=== PATIENT | female | born 2000 | race Caucasian/White ===

== ENCOUNTER → 2019-04-29 | Outpatient (CLI) | payer OTHER, SELFPAY ==
[2019-04-29 18:58] LABS: Chlamydia Trachomatis by PCR Negative (Negative); Neisserai gonorrhoeae by PCR Negative (Negative); Probe Check PASS; Sample Adequacy Control PASS; Specimen Processing Control PASS
== END | disposition home or self-care (01) ==
LOC: LABSPEC 13:39
PROVIDERS: Visit Provider Obstetrics & Gynecology
DX: Z11.3 Encounter for screening for infections with a predominantly sexual mode of transmission (principal)
CPT/HCPCS: 87491; 87591

== ENCOUNTER → 2020-05-09 | Outpatient (CLI) | payer OTHER, SELFPAY ==
[2020-05-09 10:38] VITALS: BMI 17.9
[2020-05-13 16:02] LABS: HPV Reflexed? NOT INDICATED
== END | disposition home or self-care (01) ==
LOC: LABSPEC 16:41
PROVIDERS: PCP Pediatrics; Referring Provider Obstetrics & Gynecology; Visit Provider Obstetrics & Gynecology
DX: Z12.4 Encounter for screening for malignant neoplasm of cervix (principal)
CPT/HCPCS: 88175; G0145

== ENCOUNTER 2020-09-02 14:49 | Emergency (ER) | payer OTHER, SELFPAY ==
[2020-05-09 10:38] VITALS: BMI 17.9
[2020-09-02 14:50] VITALS: BP 134/91; PULSE 96; RESP 18; TEMP 36.6; O2SAT 99; BMI 17.9
--- NOTE | 2020-09-02 15:01 | RAD_ITS ---
EXAM DESCRIPTION: PORTABLE AP CHEST CLINICAL HISTORY: 20 years Female, PT WITH COUGH, CP AND SOB. STATES PAIN INCREASES WITH A DEEP BREATH. ONGOING FOR PAST 5 DAYS. PT WITH COUGH, CP AND SOB. STATES PAIN INCREASES WITH A DEEP BREATH. ONGOING FOR PAST 5 DAYS. COMPARISON: None FINDINGS: The thorax is intact. The heart and mediastinum appear to be within normal limits. The lungs appear to be well areated without evidence of pneumonic consolidation or pleural effusion. RAD/Chest 1 View (Portable) IMPRESSION: Normal portable chest. Electronically Signed: Feliz Carvalho, at 16:05 EST Tel , Service support ,
--- NOTE | 2020-09-02 15:01 | EKG12_ITS ---
Test Reason : Blood Pressure : / mmHG Vent. Rate : 082 BPM Atrial Rate : 082 BPM P-R Int : 150 ms QRS Dur : 084 ms QT Int : 332 ms P-R-T Axes : 079 107 068 degrees QTc Int : 387 ms Normal sinus rhythm Rightward axis Borderline ECG Confirmed by OCTAVIA POWELL, ELLI ([id number]), publication editor LOW KENNEDY ([id number]) on 09/06/2020 9:08:11 AM Referred By: ALICE Confirmed By:ELLI DUDLEY MD
--- NOTE | 2020-09-02 15:13 | ED.DCSUM_ITS ---
History of Present Illness Informant: Patient Onset: Days Narrative: 20-year old female with no significant past medical history presents with complaints of chest pain and dyspnea on exertion x5 days. She has midsternal chest pressure/aching that comes and goes intermittently. It last several hours. It is worse with walking or running. With the pain she also has shortness of breath. She states she usually runs but has been unable to due to dyspnea. No radiation into arm, neck, or jaw. No nausea, vomiting, or diaphoresis. Denies fevers, chills, loss of taste or smell, cough, hemoptysis, abdominal pain, or diarrhea. Her only PE risk factor is estrogen control. She has no history of DVT/PE, recent surgery or travel, or leg pain or swelling. Maternal grandmother had DVT. No recent sick contacts. <Paradise Krishna - Last Filed: 09/02/20 15:41> <Ray Cuellar - Last Filed: 09/02/20 15:51> Chief Complaint: Chest Pain Past Medical History Past Medical History: - - GERD Smoking Status: Never smoker <Paradise Krishna - Last Filed: 09/02/20 15:41> <Ray Cuellar - Last Filed: 09/02/20 15:51> - Allergies and Home Meds Allergies/Adverse Reactions: Allergies No Known Allergies Allergy (Verified 09/02/20 14:53) Primary Care Physician: Feliz Fernandes MD [Primary Care Provider] - Review of Systems General: Denies: Chills, Fever, Sweats Eyes: Denies: Visual changes - bilaterally, Diplopia ENT: Denies: Rhinorrhea, Sore throat Cardiovascular: Reports: Chest pain. Denies: Palpitations Respiratory: Reports: Dyspnea on exertion. Denies: Dyspnea, Cough, Orthopnea Gastrointestinal: Denies: Abdominal pain, Nausea, Vomiting, Diarrhea, Melena, Hematochezia Genitourinary: Denies: Dysuria, Hematuria, Frequency Musculoskeletal: Denies: Back pain, Extremity Pain Skin: Denies: Rash, Wounds Neurological: Denies: Headache, Weakness, Numbness <Paradise Krishna - Last Filed: 09/02/20 15:41> Physical Exam Vital Signs/Narrative: Vital Signs Temp Pulse Resp BP Pulse Ox 09/02/20 14:50 97.9 F 96 18 134/91 H 99 General: Well nourished, Well developed, No Acute Distress Head: Normocephalic, Atraumatic Eyes: Perrl, EOMI ENT: Moist mucous membranes, No rhinorrhea Neck: Supple, Nontender Cardiovascular: Regular rate, Regular rhythm, No murmurs Respiratory: No distress, CTA bilaterally, Chest nontender Abdomen: Soft, Nontender, Nondistended, Normal bowel sounds Back: Nontender, Normal Inspection Extremities: Nontender, No edema Skin: Normal color, No rash Neurological: Alert, Oriented x3, Cranial nerves II-XII grossly intact, Normal Strength, Normal Sensation Psychological: Normal affect, Normal Mood <Paradise Krishna - Last Filed: 09/02/20 15:41> Vital Signs/Narrative: Vital Signs Temp Pulse Resp BP Pulse Ox 09/02/20 14:50 97.9 F 96 18 134/91 H 99 <Ray Cuellar - Last Filed: 09/02/20 15:51> Diagnostic/Tx/Re-eval Laboratory Data 09/02/20 09/02/20 09/02/20 15:10 15:10 15:10 WBC 5.9 RBC 4.94 Hgb 14.8 Hct 44.0 MCV 89.1 MCH 30.0 MCHC 33.6 RDW Std Deviation 35.3 RDW Coeff of Richardson 10.9 L Plt Count 214 MPV 9.7 Immature Gran % (Auto) 0.200 Neut % (Auto) 57.8 Lymph % (Auto) 31.9 Adams % (Auto) 8.2 Eos % (Auto) 0.9 Baso % (Auto) 1.0 Absolute Neuts (auto) 3.4 Absolute Lymphs (auto) 1.87 Nucleated RBC % 0 D-Dimer Quant (PE/DVT) 0.28 Sodium 139 Potassium 4.1 Chloride 109 H Carbon Dioxide 25.0 Anion Gap 5 BUN 12 Creatinine 0.70 Estim Creat Clear Calc 86.48 Est GFR (MDRD) Af Amer 136 Est GFR (MDRD) Non-Af 112 BUN/Creatinine Ratio 17.2 Glucose 96 Calcium 9.7 Troponin I < 0.015 - Rhythm Strip Rhythm Strip: Sinus Rhythm Rate: 82 Ectopy: None - Medical Decision Making Patient presented with midsternal chest pain and dyspnea on exertion x5 days. She appears well nontoxic. Vital signs are within normal limits. Heart was regular rate and rhythm. Lungs clear to auscultation. Does have some reproducible tenderness to palpation over the costochondral margins. Abdomen is soft and nontender. Basic labs are normal. Troponin and D-dimer negative. EKG shows normal sinus rhythm at rate of [address] or T wave changes. Chest x- ray interpreted by ED attending shows normal heart size and no acute infiltrate or process. Patient was advised she likely has chest wall pain and was given a prescription for naproxen. Follow-up with your PCP if not improving in 5 days. Discussed return precautions. She was agreeable and discharged home in stable condition. <Paradise Krishna - Last Filed: 09/02/20 15:41> - Medical Decision Making I supervised the PA and have performed my own pertinent history and physical. Results and treatment plan were discussed. HPI: Patient reports that she has chest pain that began 5 days ago. It is a constant pain. It is worsened by walking around. She is on control. She reports that her grandmother had a DVT. She denies any ankle swelling or calf pain. No recent travel. She denies any trauma. No fall, MVA, or change in activity. PE: Vitals: Stable. Afebrile. General: Well-nourished and well-developed. Head: Normocephalic atraumatic. Neck: Supple, no lymphadenopathy. No JVD. Nontender. Cardiovascular: Regular rate and rhythm. No murmurs. Respiratory: No respiratory distress. Clear to auscultation bilaterally. Mild tenderness to palpation of the costochondral margin bilaterally that does reproduce her pain. Abdominal: Soft, nontender, nondistended, normal bowel sounds. No guarding, rebound, or peritoneal signs. Back: Nontender. Extremities: Nontender, no edema. Skin: Normal color, no rash. Neurologic: Alert and oriented ?3. Cranial nerves II through XII are intact. Normal strength and sensation. Psych: Normal affect. Emergency Department course: Patient is resting comfortably. Labs and x-ray are unremarkable. Treatment Plan: Patient will be discharged with symptomatic care. Follow-up with her primary care physician without improvement. Return to the emergency department for any worsening symptoms. This note was generated with [employer] software. It may contain incorrect words, spelling, and punctuation that were not noted in review of the chart prior to signing. <Ray Cuellar - Last Filed: 09/02/20 15:51> ED Disposition <Paradise Krishna - Last Filed: 09/02/20 15:41> <Ray Cuellar - Last Filed: 09/02/20 15:51> - Plan for ED Patient: Disposition: Home or Assisted Living Diagnosis: Chest wall pain Instructions: ED Chest Pain NonCardiac Prescriptions: Naproxen [Naprosyn] 500 mg PO BID PRN #20 tab Transmission Status: Received by [id number] Referrals: Feliz Fernandes MD [Primary Care Provider] -
[2020-09-02 15:19] LABS: Absolute Lymphocyte Count 1.87 X10^3/uL (0.83-4.51); Absolute Neutrophil Count 3.4 X10^3/uL (2.0-7.7); Basophil# 0.06 X10^3/uL; Eosinophil# 0.05 X10^3/uL; Eosinophils% 0.9 % (0-5); Hemoglobin 14.8 g/dL (12.0-15.0); Lymphocyte # 1.87 X10^3/ul (4.0); Lymphocyte % 31.9 % (19-41); Mean Corp Hgb Conc 33.6 g/dL (32-36); Mean Corpuscular Volume 89.1 fL (81-99); Mean Platelet Vol. 9.7 fl (6.2-12.0); Monocyte# 0.48 X10^3/uL; Monocyte% 8.2 % (0-10); NRBC Flagged by Analyzer 0 % (0-5); Neutrophil # 3.39 X10^3/uL (2.7-7.7); Neutrophil % 57.8 % (47-70); Platelet Count 214 K/mm3 (150-450); RBC Distribution Width CV 10.9 % (11.6-14.6); RBC Distribution Width SD 35.3 fl (35.1-43.9); Red Blood Count 4.94 M/mm3 (4.2-5.4); White Blood Count 5.9 K/mm3 (4.4-11.0)
[2020-09-02 15:32] LABS: D-Dimer Quantitative (DVT/PE) 0.28 FEU/ug/m (0.27-0.49)
[2020-09-02 15:36] LABS: Anion Gap 5 (5-15); BUN 12 mg/dL (7-18); BUN/Creat Ratio 17.2 RATIO (10-20); Calcium,Total 9.7 mg/dL (8.5-10.1); Chloride 109 mmol/L (98-107); EST Glomerular Filtration Rate 112 mL/min (>60); Est Glom Filt Rate - Afr Amer 136 mL/min (>60); Estimated Creatinine Clearance 86.48 ml/min; Glucose 96 mg/dL (74-106); Potassium 4.1 mmol/L (3.5-5.1); Sodium Level 139 mmol/L (136-145)
[2020-09-02 15:52] VITALS: BP 117/81; PULSE 84; RESP 14; O2SAT 97
== END 2020-09-02 15:59 | disposition home or self-care (01) ==
PROVIDERS: Emergency Provider Physician Assistant; PCP Pediatrics
DX: R07.89 Other chest pain (principal); R06.09 Other forms of dyspnea; K21.9 Gastro-esophageal reflux disease without esophagitis; Z79.3 Long term (current) use of hormonal contraceptives
CPT/HCPCS: 71045; 80048; 84484; 85025; 85379; 87635; 93005; 99284; A4216; U0003

== ENCOUNTER → 2022-06-19 | Outpatient (CLI) | payer OTHER, SELFPAY ==
[2022-06-26 14:53] LABS: HPV Reflexed? NOT INDICATED
== END | disposition home or self-care (01) ==
LOC: LABSPEC 15:38
PROVIDERS: Visit Provider Obstetrics & Gynecology
DX: Z12.4 Encounter for screening for malignant neoplasm of cervix (principal)
CPT/HCPCS: 88175; G0145

== ENCOUNTER 2022-08-06 16:51 | Emergency (ER) | payer OTHER, SELFPAY ==
[2022-08-06 16:53] VITALS: BP 131/86; PULSE 80; RESP 16; TEMP 36.6; O2SAT 100; BMI 18.1
--- NOTE | 2022-08-06 17:10 | EDS_ITS ---
HPI HPI - GI History of Present Illness Chief Complaint: Abd Pain Informant: patient Abdominal Pain/Flank Pain Onset: Days (3) Context: Gradual Onset Timing: Continuous Quality: Aching and Cramping Location: RLQ Worsened by: - (Pushing in the right lower quadrant) Relieved by: Nothing Nausea/Vomiting/Emesis GI Symptom: Negative for Nausea or Vomiting Diarrhea/Melena/Hematochezia GI Symptom: Negative for Diarrhea, Melena or Hematochezia Associated Symptoms Associated Symptoms: Negative for Dysuria, Frequency or Hematuria Narrative Narrative: Patient presents with abdominal pain that has been getting worse over the past 3 days. Patient states the pain is over the right lower abdomen. Patient describes it as aching and cramping. Patient states it has been constant. Patient states it is worse whenever she pushes on her right lower abdomen. Patient states nothing makes it better. Patient admits to some decreased appetite. Patient denies any nausea or vomiting. Patient denies any diarrhea. Patient denies any melena or hematochezia. Patient denies any dysuria or hematuria. Patient denies any abnormal vaginal bleeding or discharge. [facility] Medical History Anxiety GERD (gastroesophageal reflux disease) Home Medications etonogestrel 0.12 mg-ethinyl estradiol 0.015 mg/24 hr vaginal ring (NuvaRing) 1 vag ring vaginal Q4W #3 ea 06/19/22 [Rx Last Taken Unknown] fluoxetine 10 mg capsule 10 mg PO DAILY 06/19/22 [History Last Taken Unknown] lansoprazole 15 mg capsule,delayed release 30 mg PO DAILY 06/19/22 [History Last Taken Unknown] Allergy/AdvReac Type Severity Reaction Status Date / Time No Known Allergies Allergy Verified 08/06/22 16:52 Family History Aunt Breast cancer Surgical History [place] teeth extracted Social History household members: family number of children: 0 current occupational status: employed 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 history of recent travel: No sexually active: Yes Smoking Status: Never smoker alcohol intake: current alcohol intake frequency: a few times a month substance use type: does not use what type of physical activity do you participate in: running frequency: 3-4 times per week seatbelt use: always do you feel safe at home: Yes additional social history: single ROS ROS ED Constitutional Constitutional ED: Denies chills or fever(s) Eyes Eyes: Denies blurry vision or change in vision ENT ENT ED: Denies rhinorrhea or sore throat Cardiovascular Cardiovascular: Denies chest pain or palpitations Respiratory/Chest Respiratory/Chest: Denies cough or dyspnea Gastrointestinal Gastrointestinal: Reports abdominal pain; Denies nausea or vomiting Genitourinary Genitourinary ED: Denies dysuria or hematuria Musculoskeletal Musculoskeletal: Denies back pain or neck pain Integumentary Denies abscess or rash Neurologic Neurologic: Reports headache(s); Denies weakness Allergic/Immunologic Allergic/Immunologic ED: Denies mouth swelling or urticaria EXAM Physical Exam Const Vital Signs: 08/06/22 16:53 08/06/22 19:00 Temperature 97.8 F Temperature Source Temporal Pulse Rate 80 78 Respiratory Rate 16 16 Blood Pressure 131/86 H 108/78 Blood Pressure Mean 101 88 Pulse Ox 100 100 Oxygen Delivery Method Room Air Room Air Positive well nourished and well developed General Appearance ED: well developed and NAD HEENT Reports moist mucous membranes Neck supple and no JVD Resp normal respiratory effort and clear to auscultation bilaterally Cardio regular rate, regular rhythm and no murmurs GI normal to inspection, nondistended, normoactive bowel sounds Palpation: soft and tender RLQ and McBurney's point; Negative for guarding or rebound tenderness present Extremity normal to inspection General Extremety ED: Negative for edema or tenderness General Extremity: Negative for edema Neuro oriented x3, CN's II-XII intact bilaterally and no sensory deficits noted Sensorium / Orientation: alert Motor Exam: strength 5/5 throughout Psych mental status grossly normal Skin no rashes or lesions noted MDM MDM MDM Narrative Medical decision making narrative: Patient was given IV fluids, morphine, and Zofran. CBC was within normal limits. Comprehensive metabolic profile was within normal limits. Serum hCG was negative. Urinalysis does not show any evidence of urinary tract infection or hematuria. CT scan of the abdomen and pelvis was obtained. There is no acute abnormality noted. This was interpreted by the radiologist and reviewed by myself. Patient was advised of her findings. Patient was instructed to follow-up with her primary care physician in 5 to 7 days. Patient and family understood and were agreeable with the plan. All questions were answered. Lab Data Attestation: I reviewed the patient's lab results. Labs: Laboratory Results - last 24 hr 08/06/22 08/06/22 08/06/22 17:20 17:20 17:20 WBC 5.7 RBC 4.63 Hgb 14.1 Hct 41.1 MCV 88.8 MCH 30.5 MCHC 34.3 RDW Std Deviation 36.0 RDW Coeff of Richardson 11.2 L Plt Count 239 MPV 9.5 Immature Gran % (Auto) 0.000 Neut % (Auto) 48.0 Lymph % (Auto) 42.2 H Miller % (Auto) 7.7 Eos % (Auto) 1.2 Baso % (Auto) 0.9 Absolute Neuts (auto) 2.7 Absolute Lymphs (auto) 2.40 Nucleated RBC % 0 Sodium 141 Potassium 3.8 Chloride 109 H Carbon Dioxide 26.0 Anion Gap 6 BUN 15 Creatinine 0.73 Estim Creat Clear Calc 82.39 Est GFR (MDRD) Af Amer 126 Est GFR (MDRD) Non-Af 105 BUN/Creatinine Ratio 20.5 H Glucose 109 H Calcium 8.8 Total Bilirubin 0.30 AST 13 L ALT 20 Alkaline Phosphatase 51 Total Protein 7.1 Albumin 3.6 Globulin 3.5 Albumin/Globulin Ratio 1.0 Serum , Qual NEGATIVE Urine Color Urine Clarity Urine pH Ur Specific [place] Urine Protein Urine Glucose (UA) Urine Ketones Urine Occult Blood Urine Nitrite Urine Bilirubin Urine Urobilinogen Ur Leukocyte Esterase Urine RBC Urine WBC Ur Squamous Epith Cells Urine Bacteria Urine Mucus 08/06/22 18:54 WBC RBC Hgb Hct MCV MCH MCHC RDW Std Deviation RDW Coeff of Richardson Plt Count MPV Immature Gran % (Auto) Neut % (Auto) Lymph % (Auto) Miller % (Auto) Eos % (Auto) Baso % (Auto) Absolute Neuts (auto) Absolute Lymphs (auto) Nucleated RBC % Sodium Potassium Chloride Carbon Dioxide Anion Gap BUN Creatinine Estim Creat Clear Calc Est GFR (MDRD) Af Amer Est GFR (MDRD) Non-Af BUN/Creatinine Ratio Glucose Calcium Total Bilirubin AST ALT Alkaline Phosphatase Total Protein Albumin Globulin Albumin/Globulin Ratio Serum , Qual Urine Color Straw Urine Clarity Clear Urine pH 7.0 Ur Specific [place] 1.005 Urine Protein Negative Urine Glucose (UA) Normal Urine Ketones Negative Urine Occult Blood Negative Urine Nitrite Negative Urine Bilirubin Negative Urine Urobilinogen Normal Ur Leukocyte Esterase Negative Urine RBC 0 SEEN Urine WBC 0-5 SEEN Ur Squamous Epith Cells 0-5 SEEN Urine Bacteria 1+ Urine Mucus 0 SEEN Radiography Diagnostic Testing: Clinical Impression(s) from Imaging Studies Abdomen/Pelvis CT 08/06/22 17:13 IMPRESSION: Negative CT of the abdomen and pelvis with contrast. Electronically Signed: Samir Henao DO at 19:38 EDT Reading Location ID and State: [address] [place] [address] Tel [phone], Service support , Discharge Plan Triage Chief Complaint: Abd Pain ED Provider: Holden Rodriguez Dx/Rx/DC Orders Clinical Impression: Abdominal pain, Anxiety Instructions: ED Abdominal Pain Unkn Cause Fem Prescriptions: No Action fluoxetine 10 mg capsule 10 mg PO DAILY lansoprazole 15 mg capsule,delayed release(DR/EC) 30 mg PO DAILY etonogestrel-ethinyl estradiol [NuvaRing] 0.12-0.015 mg/24 hr ring 1 vag ring VAGINAL Q4W Qty: 3 5RF Rx Instructions: In vagina X 4 weeks then replace for continuous cycling Primary Care Provider: Emily Santiago Referrals: Emily Santiago MD [Primary Care Provider] - 5-7 Days Care Physician,No Primary [Non-Staff] - Disposition Disposition: Home, Self Care
--- NOTE | 2022-08-06 17:13 | CT_ITS ---
INDICATION: Abdominal pain. EXAMINATION: CT ABDOMEN AND PELVIS WITH CONTRAST - CT Abdomen And Pelvis W/ Contrast Injection TECHNIQUE: Helically acquired images were obtained of the abdomen and pelvis following IV contrast. A radiation dose optimization technique was used for this scan. IV Contrast dosage and agent: 75 mL of Isovue 370 Oral contrast: Yes COMPARISON: None. FINDINGS: LOWER CHEST: Lung bases are clear. No cardiomegaly or pericardial effusion. LIVER: Homogeneous. No focal mass. GALLBLADDER AND BILIARY TREE: No calcified gallstones. No gallbladder distension or wall edema. No intra- or extrahepatic biliary ductal dilation. PANCREAS: No focal cystic or solid mass. SPLEEN: Normal size without focal cystic or solid mass. ADRENAL GLANDS: No nodules. KIDNEYS AND URETERS: Normal renal size and position. No hydronephrosis. PERITONEUM: No ascites or free air. No other fluid collection. BOWEL: No evidence of acute appendicitis. No stomach or bowel distension. No focal inflammatory change. LYMPH NODES: No enlarged mesenteric or retroperitoneal lymph nodes. VESSELS: Aorta is non-dilated. Normal IVC URINARY BLADDER: Unremarkable. REPRODUCTIVE ORGANS: Normal uterus and adnexa. Question pessary in the vaginal vault. ABDOMINAL WALL: No discrete abdominal or pelvic wall hernia. BONES: No lytic or blastic abnormality. CT/Abdomen/Pelvis WITH Contrast IMPRESSION: Negative CT of the abdomen and pelvis with contrast. Electronically Signed: Samir Henao DO at 19:38 EDT ,
[2022-08-06] MEDS: 0.9% Normal Saline 1,000 ML 1000 ML IV (17:26)
[2022-08-06 17:39] LABS: Internal QC Validated? YES +Cl - CLEAR BKGD; Pregnancy, Serum, hCG Quali. NEGATIVE Negative
[2022-08-06 17:44] LABS: AST(SGOT) 13 U/L (15-37); Absolute Neutrophil Count 2.7 X10^3/uL (2.0-7.7); Alanine Aminotransfer ALT/SGPT 20 U/L (13-56); Albumin, Serum 3.6 g/dL (3.2-5.0); Alkaline Phosphatase 51 U/L (45-117); Anion Gap 6 (5-15); BUN 15 mg/dL (7-18); BUN/Creat Ratio 20.5 RATIO (10-20); Basophil# 0.05 X10^3/uL; Basophil% 0.9 % (0-1); Calcium,Total 8.8 mg/dL (8.5-10.1); Chloride 109 mmol/L (98-107); Creatinine, Serum 0.73 mg/dL (0.55-1.02); EST Glomerular Filtration Rate 105 mL/min (>60); Eosinophil# 0.07 X10^3/uL; Eosinophils% 1.2 % (0-5); Est Glom Filt Rate - Afr Amer 126 mL/min (>60); Estimated Creatinine Clearance 82.39 ml/min; Globulin 3.5 g/dL (2.2-4.2); Glucose 109 mg/dL (74-106); Hematocrit 41.1 % (37-47); Hemoglobin 14.1 g/dL (12.0-15.0); Lymphocyte % 42.2 % (19-41); Mean Corp Hgb Conc 34.3 g/dL (32-36); Mean Corpuscular Hgb 30.5 pg (27.0-32.0); Mean Corpuscular Volume 88.8 fL (81-99); Mean Platelet Vol. 9.5 fl (6.2-12.0); Monocyte# 0.44 X10^3/uL; Monocyte% 7.7 % (0-10); NRBC Flagged by Analyzer 0 % (0-5); Neutrophil # 2.73 X10^3/uL (2.7-7.7); Platelet Count 239 K/mm3 (150-450); Potassium 3.8 mmol/L (3.5-5.1); Protein, Total 7.1 g/dL (6.4-8.2); RBC Distribution Width CV 11.2 % (11.6-14.6); Red Blood Count 4.63 M/mm3 (4.2-5.4); Sodium Level 141 mmol/L (136-145); White Blood Count 5.7 K/mm3 (4.4-11.0)
[2022-08-06 19:00] VITALS: BP 108/78; PULSE 78; RESP 16; O2SAT 100
[2022-08-06 19:04] LABS: Mucous, Urine 0 SEEN /hpf (<or=2+); Red Blood Cells-Urine 0 SEEN /hpf (0-5)
[2022-08-06 19:17] LABS: Color, Urine Straw (Yellow); Glucose, Dipstick Normal (Normal); Ketone-Dipstick Negative (Negative); Leukocyte Esterase-Dipstick Negative /ul (Negative); Nitrite-Dipstick Negative (Negative); Occult Blood-Urine Negative /ul (Negative); Protein-Dipstick Negative (Negative); Specific Gravity, Urine 1.005 (1.002-1.030); Urine Bilirubin Dipstick Negative (Negative); Urine Clarity Clear (Clear); Urine Urobilinogen Normal (Normal)
[2022-08-06 19:31] LABS: Bacteria 1+ /hpf (None Seen); Squamous Epithelial Cells - UA 0-5 SEEN /hpf (5-10); White Blood Cells 0-5 SEEN /hpf (0-5)
[2022-08-06 20:24] VITALS: BP 126/78; PULSE 78; RESP 16; TEMP 36.9; O2SAT 99
== END 2022-08-06 20:25 | disposition home or self-care (01) ==
PROVIDERS: Emergency Provider Emergency Medicine; PCP Internal Medicine; Visit Provider Emergency Medicine
DX: R10.31 Right lower quadrant pain (principal); K21.9 Gastro-esophageal reflux disease without esophagitis; F41.9 Anxiety disorder, unspecified; Z79.899 Other long term (current) drug therapy
CPT/HCPCS: 74177; 80053; 81001; 84703; 85025; 96374; 96375; 99283; J7030; Q9967; A4216; J2405

== ENCOUNTER → 2022-10-03 | Outpatient (CLI) | payer OTHER, SELFPAY ==
[2022-10-03 16:38] LABS: Erythrocyte Sedimentation Rate 10 mm/hr (0-30)
[2022-10-03 16:41] LABS: Absolute Lymphocyte Count 1.05 X10^3/uL (0.83-4.51); Absolute Neutrophil Count 2.2 X10^3/uL (2.0-7.7); Basophil# 0.03 X10^3/uL; Basophil% 0.8 % (0-1); Eosinophil# 0.01 X10^3/uL; Eosinophils% 0.3 % (0-5); Hemoglobin 13.8 g/dL (12.0-15.0); Lymphocyte # 1.05 X10^3/ul (0.83-4.51); Lymphocyte % 26.9 % (19-41); Mean Corp Hgb Conc 33.7 g/dL (32-36); Mean Corpuscular Hgb 30.6 pg (27.0-32.0); Mean Corpuscular Volume 90.9 fL (81-99); Mean Platelet Vol. 10.3 fl (6.2-12.0); Monocyte# 0.59 X10^3/uL; Monocyte% 15.1 % (0-10); NRBC Flagged by Analyzer 0 % (0-5); Neutrophil # 2.23 X10^3/uL (2.7-7.7); Neutrophil % 56.9 % (47-70); Platelet Count 151 K/mm3 (150-450); RBC Distribution Width CV 11.5 % (11.6-14.6); RBC Distribution Width SD 38.3 fl (35.1-43.9); Red Blood Count 4.51 M/mm3 (4.2-5.4); White Blood Count 3.9 K/mm3 (4.4-11.0)
[2022-10-03 16:58] LABS: ALB/GLOB Ratio 1.1 RATIO (0.9-2.4); AST(SGOT) 19 U/L (15-37); Alanine Aminotransfer ALT/SGPT 24 U/L (13-56); Albumin, Serum 3.5 g/dL (3.2-5.0); Alkaline Phosphatase 43 U/L (45-117); Anion Gap 6 (5-15); BUN 10 mg/dL (7-18); BUN/Creat Ratio 14.9 RATIO (10-20); Calcium,Total 8.6 mg/dL (8.5-10.1); Chloride 109 mmol/L (98-107); Creatinine, Serum 0.67 mg/dL (0.55-1.02); EST Glomerular Filtration Rate 115 mL/min (>60); Est Glom Filt Rate - Afr Amer 139 mL/min (>60); Globulin 3.3 g/dL (2.2-4.2); Glucose 88 mg/dL (74-106); LDH 128 U/L (84-246); Potassium 3.9 mmol/L (3.5-5.1); Protein, Total 6.8 g/dL (6.4-8.2); Sodium Level 138 mmol/L (136-145)
[2022-10-05 13:07] LABS: Anti-Centromere B Ab <0.2 AI (0.0-0.9); Anti-Chromatin <0.2 AI (0.0-0.9); Anti-Jo <0.2 AI (0.0-0.9); Anti-Scleroderma-70 AB <0.2 AI (0.0-0.9); RNP Ab 0.8 AI (0.0-0.9); SJOGREN'S Anti-SS-A test < 0.2 AI (0.0-0.9); SJOGREN'S Anti-SS-B test < 0.2 AI (0.0-0.9); Smith Ab <0.2 AI (0.0-0.9)
[2022-10-05 17:07] LABS: Anti-dsDNA Ab <1 IU/mL (0-9)
[2022-10-05 18:07] LABS: Endomysial Antibody IgA Negative (Negative)
[2022-10-05 19:03] LABS: Immunoglobulin A 111 mg/dL (87-352); t-Transglutaminase IgA <2 U/mL (0-3)
[2022-10-09 14:08] LABS: Albumin 3.5 g/dL (2.9-4.4); Alpha-1-Globulins 0.3 g/dL (0.0-0.4); Alpha-2-Globulins 0.7 g/dL (0.4-1.0); Cytoplasmic Ab (C-ANCA) <1:20 titer (Neg:<1:20); Gamma Globulin 0.8 g/dL (0.4-1.8); Immunoglobulin A 111 mg/dL (87-352); Immunoglobulin E 40 IU/mL (6-495); Immunoglobulin G 880 mg/dL (586-1602); Immunoglobulin M 75 mg/dL (26-217); PROEL- TOTAL PROTEIN 6.2 g/dL (6.0-8.5)
[2022-10-09 16:30] LABS: Perinuclear Ab (P-ANCA) <1:20 titer (Neg:<1:20)
== END | disposition home or self-care (01) ==
LOC: LAB 15:47
PROVIDERS: PCP Internal Medicine; Referring Provider Internal Medicine Gastroenterology; Visit Provider Internal Medicine Gastroenterology
DX: R10.9 Unspecified abdominal pain (principal)
CPT/HCPCS: 36415; 80053; 82784; 82785; 83516; 83615; 84165; 85025; 85652; 86140; 86225; 86235; 86255; 86256; 86334

== ENCOUNTER → 2022-10-10 | Outpatient (CLI) | payer OTHER, SELFPAY ==
--- NOTE | 2022-10-10 08:35 | RAD_ITS ---
PROCEDURE: Upper GI with Small Bowel Follow Through DATE OF EXAMINATION: 10/10/2022.. INDICATION: Female, 22 years old. Right lower quadrant pain. Constipation/diarrhea. FLUOROSCOPY TIME (if supplied): (1:44) minutes/seconds. 23 images were submitted. TECHNIQUE: Radiographic and fluoroscopic images of the distal esophagus, stomach, and entire small intestine were obtained following the oral ingestion of barium. COMPARISON: None. FINDINGS: The departmental buyer film of the abdomen demonstrates a normal bowel gas pattern. There are no abnormal calcifications or organomegaly demonstrated. The visualized osseous structures are normal. There is evidence of a gastroesophageal reflux. The remainder of the stomach and duodenum are unremarkable. A single contrast small bowel follow through exam demonstrates the small bowel to have no evidence for stricture, ulceration or mass. The transit time is normal at 30 minutes. The terminal ileum is unremarkable. RAD/Upper GI/w Small Bowel IMPRESSION: 1. Gastroesophageal reflux. The remainder of the examination is unremarkable. Electronically Signed: Jos Shore MD at 12:28 EST ,
== END | disposition home or self-care (01) ==
LOC: RAD 08:31
PROVIDERS: PCP Internal Medicine; Visit Provider Internal Medicine Gastroenterology
DX: K21.9 Gastro-esophageal reflux disease without esophagitis (principal); R10.9 Unspecified abdominal pain
CPT/HCPCS: 74246; 74248

== ENCOUNTER → 2022-10-18 | Outpatient (CLI) | payer OTHER, SELFPAY ==
[2022-10-21 11:27] LABS: Calprotectin, Stool 47 ug/g (0-120)
== END | disposition home or self-care (01) ==
LOC: LABSPEC 14:59
PROVIDERS: PCP Internal Medicine; Visit Provider Internal Medicine Gastroenterology
DX: R10.9 Unspecified abdominal pain (principal)
CPT/HCPCS: 83630; 83993

== ENCOUNTER 2022-12-31 05:58 | Day surgery (SDC) | payer OTHER, SELFPAY ==
[2022-12-31 06:36] LABS: Internal QC Validated? YES +Cl - CLEAR BKGD; Pregnancy, Urine Negative Negative
[2022-12-31 06:37] VITALS: BP 120/82; PULSE 85; RESP 16; TEMP 36.6; O2SAT 100; BMI 17.2
[2022-12-31] MEDS: Lactated Ringers 1,000 ML 15 ML IV (06:44)
--- NOTE | 2022-12-31 07:05 | HP.PCM_ITS ---
History and Physical Date of Admission: 12/31/22 22 F who presents to the office today for Initial consult. Angella established with this clinic 10.03.22 with referral from PCP. She has been having difficulty with abdominal pain. [facility] ED presentation 08.06.22 with abdominal pain without N/V/D. Biochemical workup and CT scan without acute/chronic abnormality and she was discharged. ?CT abd/pel?without acute/chronic finding. GI Hx GERD PMH anxiety/panic disorder FH Crohn?s disease Patient states that she has had chronic abdominal pain since childhood. Patient states abdominal pain began to worsen 2-3 months ago. Patient states that the abdominal pain moves around but is usually in lower region of her abdomen. Denies any aggravating or alleviating factors. States that she varies between diarrhea and constipation. Denies any previous EGD or Colonoscopy. Patient has a history of GERD that is fairly controlled with lansoprazole 15 mg daily. ROS Const Constitutional: No fatigue, fever(s), frequent falls, headache(s) or weight change ENT ENT: No headache(s) or difficulty swallowing Cardio Cardiology: No leg pain with exertion Gastro GI: Positive for abdominal pain, constipation, diarrhea and feeling full early; No bloating, change in bowel habits, heartburn, difficulty swallowing, Vomiting blood/hematemesis, Blood in stool, nausea/dyspepsia or vomiting Musc Musculoskeletal: No abnormal gait, joint pain, back pain, joint swelling, muscle cramps, muscle weakness, numbness, stiffness, tingling, Arthritis, sciatica, leg pain at night or leg pain with exertion Skin Skin: No dry skin, lesions, itchy eyes or rash Neuro Neurology: No abnormal gait, dizziness, frequent falls, headache(s), numbness, tingling, tremor(s), Increased tone in limbs, paralysis or seizures Psych Psychiatric: No anxiety, No depression, No paranoia, No Behavioral Problems, No Compulsive Behavior, No hyperactivity, No inattentiveness, No obsessions/compulsions, Positive for Temper Tantrums and No suicidal ideation Endo Endocrine: No fatigue or weight change Aller/Imm Allergy/Immunologic: No itchy eyes Melchor/Lymp Hematologic/Lymphatic: No easy bleeding or easy bruising Exam Const General: cooperative and comfortable Nutritional Appearance: average body habitus and well nourished HENMT Head: normal to inspection Ears: hearing grossly normal bilaterally Nose: external nose normal Face and sinus: normal facial exam Mouth: oral mucosae normal Throat: posterior oropharynx normal Eyes General: appearance normal, both eyes and all related structures Neck Neck: normal visual inspection Chest Chest palpation & inspection: normal inspection of the chest and normal palpation of entire chest wall Resp Effort & Inspection: normal respiratory effort Auscultation: Bilateral: Clear to Auscultation Cardio Palpation: normal PMI Rate: regular rate Rhythm: regular rhythm GI Inspection: normal to inspection Auscultation: normal bowel sounds Percussion: normal to percussion Palpation: no hepatosplenomegaly Skin General: no rashes or lesions noted Neuro General: patient alert Extrem General: normal to inspection Psych Affect: normal affect Quality Reporting Tobacco Screening ([facility] 138) Smoking Status: Never smoker Assessment and Plan Assessment and Plan (1) Abdominal pain: ?Status:?Acute ?Plan: Significant for her abdominal pain does include 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 She will plan to get biochemical testing, stool testing, small bowel follow-through to look for bleeding arcuate ligament syndrome. ? ? ? Orders: Orders Comprehensive Metabolic Profil Today R10.9 - Unspecified abdominal pain ? CRP Today R10.9 - Unspecified abdominal pain ? LDH Today R10.9 - Unspecified abdominal pain ? CBC W/Diff, Automated Today R10.9 - Unspecified abdominal pain ? Erythrocyte Sed Rate Today R10.9 - Unspecified abdominal pain ? JOAQUIM Comprehensive Panel Today R10.9 - Unspecified abdominal pain ? Calprotectin, Stool Today R10.9 - Unspecified abdominal pain ? Stool Lactoferrin/WBC Today R10.9 - Unspecified abdominal pain ? ANCA Today R10.9 - Unspecified abdominal pain ? Celiac Disease Profile Today R10.9 - Unspecified abdominal pain ? Immunoglobulins G/A/M/E Today R10.9 - Unspecified abdominal pain ? ELIZABETH + Protein Elect, Serum Today R10.9 - Unspecified abdominal pain ? Miscellaneous Lab Procedure Today R10.9 - Unspecified abdominal pain ? Allergen, Rast Food Profile Today R10.9 - Unspecified abdominal pain ? I have examined the patient and the H&P has been reviewed. There are no clinical changes since date of exam.
--- NOTE | 2022-12-31 07:15 | IMM_PTH ---
PATIENT: YANN REIS LOC: EN U#:[id number] AGE/SX: 22 ROOM: RE12/31/[address]: Dr. John Harris DO : 2000 BED: DIS: 12/31/2022 SPEC #: [id number] RECD: 12/31/22 12:42 STATUS: SUSAN RESeveriano #: [id number] ESTHER: 12/31/22 07:[address]: John Harris DEPT: IMMUNOHISTOCHEMISTRY RECD BY: Veronica Briceño ENTERED: 12/31/22 12:42 SP TYPE: IMMUNO OTHR DR: Dr. Emily Santiago MD Tissues: B - Stomach, NOS Procedures: H Pylori (initial) PHYSICIAN & INSTITUTION [place] [address] SPECIMEN INFORMATION: Tissue Source: B ? Gastric antrum biopsy Clinical Info: Abdominal pain Specimen Number: [id number] CPT code: 91337 METHODOLOGY: Deparaffinized sections of prefer/formalin-fixed tissue or PAP/DQ stained slides are incubated with monoclonal/polyclonal antibodies/oligonucleotide probes. Localization is made via biotin free immunoperoxidase method. Appropriate controls are performed and reacted as expected. Results on target cell population are indicated in the following table: RESULTS: ANTIBODY / CLONE RESULT Block B H Pylori (polyclonal) negative These tests were developed and their performance characteristics determined by [facility]. They may not have been cleared or approved by the U.S. Food and Drug Administration. The FDA has determined that such clearance or approval is not necessary. The above immunohistochemical/dualISH markers are ordered and reviewed by the Pathologist. INTERPRETATION: B. Gastric antrum, biopsy: Negative for Helicobacter pylori organisms. SJ:magno 01/01/2023
--- NOTE | 2022-12-31 07:15 | COLBX_PTH ---
PATIENT: YANN REIS LOC: EN U#:[id number] AGE/SX: 22/ ROOM: RE12/31/[address]: Dr. John Harris DO : 2000 BED: DIS: 12/31/2022 SPEC #: [id number] RECD: 12/31/22 11:34 STATUS: SUSAN MARCELLE #: [id number] ESTHER: 12/31/22 07:[address]: John Harris DEPT: SURGICAL PATHOLOGY RECD BY: Lyndsay Serrano ENTERED: 12/31/22 12:07 SP TYPE: COLON BX OTHR DR: Dr. Emily Santiago MD Tissues: A - Duodenum, NOS B - Gastric mucous membrane C - Ileum, NOS D - COLON BIOPSY Procedures: Surgery Specimen Level IV HEADER OPERATION: [place] [place] PRE-OP DIAGNOSIS: Abdominal pain TISSUE SUBMITTED: A ? Duodenum biopsy, B ? Gastric antrum biopsy, C ? Terminal ileum biopsy, D ? Random colonic biopsy MICROSCOPIC DIAGNOSIS A. Duodenum, biopsy: Fragments of duodenal mucosa, no pathologic diagnosis. B. Gastric antrum, biopsy: Mild gastritis. See microscopic description and comment. C. Terminal ileum, biopsy: Fragments of small intestinal mucosa, no pathologic diagnosis. D. Colon, random biopsy: Fragments of colonic mucosa, no pathologic diagnosis. SJ:magno 01/01/2023 COMMENT B. The results of immunohistochemistry for Helicobacter pylori will be reported separately ([id number]). Alcian blue/PAS stained with matched control is used in the evaluation of the specimen. MICROSCOPIC DESCRIPTION Slides are reviewed. B. The specimen shows fragments of gastric mucosa with chronic inflammatory cell infiltrates in the lamina propria consisting of lymphocytes and plasma cells, consistent with mild chronic gastritis. 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 GROSS DESCRIPTION A - Received in fixative is one container labeled with the patient's name and designated duodenum biopsy. The specimen consists of two irregular fragments of light mercer soft tissue that in aggregate measure 0.5 x 0.3 x 0.1 cm. The specimen is totally submitted in one cassette. B - Received in fixative is one container labeled with the patient's name and designated gastric antrum biopsy. The specimen consists of multiple irregular fragments of light mercer soft tissue that in aggregate measure 1.2 x 0.4 x 0.1 cm. The specimen is totally submitted in one cassette. C - Received in fixative is one container labeled with the patient's name and designated terminal ileum biopsy. The specimen consists of two irregular fragments of light mercer soft tissue that in aggregate measure 0.6 x 0.3 x 0.1 cm. The specimen is totally submitted in one cassette. D - Received in fixative is one container labeled with the patient's name and designated random colonic biopsy. The specimen consists of multiple irregular fragments of light mercer soft tissue that in aggregate measure 0.8 x 0.7 x 0.1 cm. The specimen is totally submitted in one cassette. / SJ:rg 12/31/2022 TC:3 CPT: 35775 x4, 77278
[2022-12-31 07:40] VITALS: BP 106/66; BP 120/82; PULSE 76; RESP 16; TEMP 36.5; O2SAT 98
--- NOTE | 2022-12-31 07:42 | OP.EGD_ITS ---
Patient Name: Angella Alcocer Procedure Date: 12/31/2022 7:06 AM Date of : 2000 Age: 22 Procedure: Upper GI endoscopy Indications: Generalized abdominal pain Providers: John Harris DO Referring MD: John Harris DO Patient Profile: This is a 22 year old female. Refer to note in patient chart for documentation of history and physical. Patient has symptoms of chronic abdominal cramping, chronic global abdominal pain and chronic nausea. Complications: No immediate complications. Procedure: Pre-Anesthesia Assessment: - Prior to the procedure, a History and Physical was performed, and patient medications and allergies were reviewed. The patient is competent. The risks and benefits of the procedure and the sedation options and risks were discussed with the patient. All questions were answered and informed consent was obtained. Patient identification and proposed procedure were verified by the physician. Mental Status Examination: normal. Prophylactic Antibiotics: The patient does not require prophylactic antibiotics. Prior Anticoagulants: The patient has taken no previous anticoagulant or antiplatelet agents. After reviewing the risks and benefits, the patient was deemed in satisfactory condition to undergo the procedure. The anesthesia plan was to use monitored anesthesia care (MAC). Immediately prior to administration of medications, the patient was re-assessed for adequacy to receive sedatives. The heart rate, respiratory rate, oxygen saturations, blood pressure, adequacy of pulmonary ventilation, and response to care were monitored throughout the procedure. The physical status of the patient was re-assessed after the procedure. After obtaining informed consent, the endoscope was passed under direct vision. Throughout the procedure, the patient's blood pressure, pulse, and oxygen saturations were monitored continuously. The colonoscope was introduced through the mouth, and advanced to the second part of duodenum. The upper GI endoscopy was accomplished without difficulty. The patient tolerated the procedure well. Scope In: 7:15:17 AM Scope Out: 7:19:20 AM Total Procedure Duration Time 0 hours 4 minutes 3 seconds Findings: The examined esophagus was normal. No gross lesions were noted in the entire examined stomach. Patchy mildly erythematous mucosa without bleeding was found in the gastric antrum. Biopsies were taken with a cold forceps for histology. Verification of patient identification for the specimen was done. Estimated blood loss was minimal. No gross lesions were noted in the second portion of the duodenum. Patchy mildly erythematous mucosa without active bleeding and with no stigmata of bleeding was found in the first portion of the duodenum. Biopsies were taken with a cold forceps for histology. Verification of patient identification for the specimen was done. Estimated blood loss was minimal. Impression: - Normal esophagus. - No gross lesions in the stomach. - Erythematous mucosa in the antrum. Biopsied. - No gross lesions in the second portion of the duodenum. - Erythematous duodenopathy. Biopsied. Recommendation: - Discharge patient to home. - Resume previous diet. - Continue present medications. - Await pathology results. Procedure Code(s): --- Professional --- 97518, Esophagogastroduodenoscopy, flexible, transoral; with biopsy, single or multiple CPT copyright 2017 [employer]. All rights reserved. The codes documented in this report are preliminary and upon seismograph observer review may be revised to meet current compliance requirements. John Harris DO 12/31/2022 7:42:29 AM This report has been signed electronically. Number of Addenda: 0 Note Initiated On: 12/31/2022 7:06 AM
--- NOTE | 2022-12-31 07:44 | OP.CCLET_ITS ---
12/31/2022 Emily Santiago [address] [place] [address] Re : Upper GI endoscopy procedure for Angella Alcocer Dear Dr. Santiago This procedure was performed on Saturday, December 31, 2022. My impressions and recommendations are as follows: Impressions : - Normal esophagus. - No gross lesions in the stomach. - Erythematous mucosa in the antrum. Biopsied. - No gross lesions in the second portion of the duodenum. - Erythematous duodenopathy. Biopsied. Recommendations : - Discharge patient to home. - Resume previous diet. - Continue present medications. - Await pathology results. My findings are described in the full procedure note, which is enclosed. If I can be of further assistance, please feel free to contact me at . Sincerely, John Harris, 12/31/2022 7:42:29 AM This report has been signed electronically.
[2022-12-31 07:45] VITALS: BP 106/73; BP 120/82; PULSE 68; RESP 16; O2SAT 100
--- NOTE | 2022-12-31 07:49 | OP.COLON_ITS ---
Patient Name: Angella Alcocer Procedure Date: 12/31/2022 7:19 AM Date of : 2000 Age: 22 Procedure: Colonoscopy Indications: Generalized abdominal pain, Chronic diarrhea Providers: John Harris DO Referring MD: John Harris DO Medicines: Monitored Anesthesia Care Patient Profile: This is a 22 year old female. Refer to note in patient chart for documentation of history and physical. Patient has symptoms of chronic abdominal cramping, chronic global abdominal pain and chronic nausea. Last Colonoscopy: none. The patient's first colonoscopy is today. Complications: No immediate complications. Procedure: Pre-Anesthesia Assessment: - Prior to the procedure, a History and Physical was performed, and patient medications and allergies were reviewed. The patient is competent. The risks and benefits of the procedure and the sedation options and risks were discussed with the patient. All questions were answered and informed consent was obtained. Patient identification and proposed procedure were verified by the physician. Mental Status Examination: normal. Prophylactic Antibiotics: The patient does not require prophylactic antibiotics. Prior Anticoagulants: The patient has taken no previous anticoagulant or antiplatelet agents. After reviewing the risks and benefits, the patient was deemed in satisfactory condition to undergo the procedure. The anesthesia plan was to use monitored anesthesia care (MAC). Immediately prior to administration of medications, the patient was re-assessed for adequacy to receive sedatives. The heart rate, respiratory rate, oxygen saturations, blood pressure, adequacy of pulmonary ventilation, and response to care were monitored throughout the procedure. The physical status of the patient was re-assessed after the procedure. After I obtained informed consent, the scope was passed under direct vision. Throughout the procedure, the patient's blood pressure, pulse, and oxygen saturations were monitored continuously. The colonoscope was introduced through the anus and advanced to the terminal ileum. The terminal ileum, ileocecal valve, appendiceal orifice, and rectum were photographed. Scope In: 7:21:07 AM Scope Withdrawal Time 0 hours 8 minutes 42 seconds Scope Out: 7:35:00 AM Total Procedure Duration Time 0 hours 13 minutes 53 seconds Findings: The digital rectal exam findings include decreased sphincter tone. There was moderate spasm in the sigmoid colon, in the transverse colon and at the hepatic flexure. Biopsies were taken with a cold forceps for histology. The terminal ileum appeared normal. Biopsies were taken with a cold forceps for histology. Verification of patient identification for the specimen was done. Estimated blood loss was minimal. Impression: - Decreased sphincter tone found on digital rectal exam. - Moderate colonic spasm consistent with irritable bowel syndrome. Biopsied. - The examined portion of the ileum was normal. Biopsied. Recommendation: - Discharge patient to home. - Resume previous diet. - Continue present medications. - Await pathology results. - Repeat colonoscopy is recommended for surveillance. The colonoscopy date will be determined after pathology results from today's exam become available for review. Procedure Code(s): --- Professional --- 79961, Colonoscopy, flexible; with biopsy, single or multiple CPT copyright 2017 [employer]. All rights reserved. The codes documented in this report are preliminary and upon phlebotomy services representative review may be revised to meet current compliance requirements. John Harris DO 12/31/2022 7:48:45 AM This report has been signed electronically. Number of Addenda: 0 Note Initiated On: 12/31/2022 7:19 AM
[2022-12-31 07:50] VITALS: BP 107/72; BP 120/82; PULSE 84; RESP 16; O2SAT 100
--- NOTE | 2022-12-31 07:50 | OP.CCLET_ITS ---
12/31/2022 Emily Santiago [address] [place] [address] Re : Colonoscopy procedure for Angella Alcocer Dear Dr. Santiago This procedure was performed on Saturday, December 31, 2022. My impressions and recommendations are as follows: Impressions : - Decreased sphincter tone found on digital rectal exam. - Moderate colonic spasm consistent with irritable bowel syndrome. Biopsied. - The examined portion of the ileum was normal. Biopsied. Recommendations : - Discharge patient to home. - Resume previous diet. - Continue present medications. - Await pathology results. - Repeat colonoscopy is recommended for surveillance. The colonoscopy date will be determined after pathology results from today's exam become available for review. My findings are described in the full procedure note, which is enclosed. If I can be of further assistance, please feel free to contact me at . Sincerely, John Friend, 12/31/2022 7:48:45 AM This report has been signed electronically.
[2022-12-31 07:55] VITALS: BP 107/70; BP 120/82; PULSE 73; RESP 16; TEMP 36.4; O2SAT 100
[2022-12-31 08:17] VITALS: BP 120/82
== END 2022-12-31 08:29 | disposition home or self-care (01) ==
LOC: EN 06:04 → AC 06:04
PROVIDERS: Anesthesiology; PCP Internal Medicine; Referring Provider Internal Medicine; Visit Provider Internal Medicine Gastroenterology
PROC: 0DJD8ZZ Inspection of Lower Intestinal Tract, Via Natural or Artificial Opening Endoscopic (ICD-10-PCS; CPT 45378; principal; 2022-12-31 07:10)
DX: K58.0 Irritable bowel syndrome with diarrhea (principal); R10.9 Unspecified abdominal pain
CPT/HCPCS: 45380; 43239; 81025; 88305; 88342; J7120; J2405

== ENCOUNTER → 2023-06-20 | Outpatient (CLI) | payer OTHER, SELFPAY ==
[2023-06-25 08:11] LABS: Beef <0.10 kU/L (Class 0); Chocolate <0.10 kU/L (Class 0); Corn <0.10 kU/L (Class 0); Egg, Whole <0.10 kU/L (Class 0); Milk (Cow) <0.10 kU/L (Class 0); Peanut <0.10 kU/L (Class 0); Pork <0.10 kU/L (Class 0); Soybean <0.10 kU/L (Class 0); Wheat <0.10 kU/L (Class 0)
== END | disposition home or self-care (01) ==
PROVIDERS: Internal Medicine Gastroenterology; PCP Internal Medicine; Referring Provider Obstetrics & Gynecology; Visit Provider Obstetrics & Gynecology
DX: R10.9 Unspecified abdominal pain (principal); Z82.49 Family history of ischemic heart disease and other diseases of the circulatory system
CPT/HCPCS: 36415; 81241; 86003; 86005

== ENCOUNTER 2024-04-21 12:08 | Emergency (ER) | payer OTHER, SELFPAY ==
[2024-04-21 12:09] VITALS: BP 113/75; PULSE 86; RESP 16; TEMP 36.8; O2SAT 98; BMI 17.8
--- NOTE | 2024-04-21 12:29 | VDLE_ITS ---
Reason For Study: Left leg pain RIGHT LEFT CFV is compressible, spontaneous, phasic, GSV is normal. competent and demonstrates normal CFV is compressible, spontaneous, phasic, augmentation. competent, and demonstrates normal Procedure augmentation. This is a venous duplex using B-mode, color FV is compressible, spontaneous, phasic, flow and spectral Doppler. competent and demonstrates normal Exam performed portable in ED. augmentation. A preliminary report was called and/or faxed POP V is compressible, spontaneous, phasic, to Dr. Rodriguez. competent and demonstrates normal augmentation. T/P Trunk is compressible. PTV is compressible. LT PerV is compressible. VL/Venous Duplex US, Unilateral Interpretation Summary There is no evidence of left lower extremity deep vein thrombosis. Left great s aphenous vein appears patent and compressible segmentally. Normal flow patterns right common femoral vein Ordering Physician: Holden Rodriguez Referring Physician: Emily Santiago M.D. Performed By: Judit Hammond RVT
--- NOTE | 2024-04-21 12:29 | ED.VIS.LOWEX ---
HPI History of Present Illness HPI Narrative: Patient presents with pain to her left calf that has been getting worse over the past 3 to 4 days. Patient describes her pain as cramping. Patient states it is worse with prolonged standing. Patient admits to some tingling into her lower leg. Patient states she does have a family history of DVTs. Patient states she is on the NuvaRing. Patient denies any trauma or injury. Patient states she called her primary care physician who referred to the emergency department for possible DVT. Chief Complaint: Lower Extremity Injury Informant: patient Onset/Context/Timing Onset: Days (3-4) Context: Gradual Onset Timing: Continuous Quality of Pain: - (Cramping) Location: Left leg Worsened by: Standing Relieved by: Rest Associated Symptoms Associated Symptoms: Positive for Parasthesia; Negative for Weakness or Loss of Funtion PFSH [facility] Medical History Contraceptive management Wears contact lenses Gastric reflux Non-smoker RLQ abdominal pain GERD (gastroesophageal reflux disease) Anxiety Home Medications ?Medication ?Instructions ?Recorded ?Last Taken ?Type fluoxetine 10 mg capsule 10 mg PO DAILY 06/19/22 Unknown History lansoprazole 15 mg capsule,delayed 30 mg PO DAILY 10/03/22 Unknown History release linaclotide 72 mcg capsule 72 mcg PO DAILY #30 caps 01/02/23 Unknown Rx (Linzess) metronidazole 500 mg tablet 500 mg PO BID #60 tabs 02/10/24 Unknown Rx etonogestrel 0.12 mg-ethinyl 1 vag ring vaginal Q4W #3 ea 03/31/24 Unknown Rx estradiol 0.015 mg/24 hr vaginal ring (NuvaRing) Allergy/AdvReac Type Severity Reaction Status Date / Time No Known Allergies Allergy Verified 06/20/23 14:41 Family History Aunt Breast cancer Mother History of DVT (deep vein thrombosis) Other Crohn's disease Surgical History [place] teeth extracted Social History household members: family number of children: 0 current occupational status: employed 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) ROS ROS ED Constitutional Constitutional ED: Denies chills or fever(s) Eyes Eyes: Denies blurry vision or change in vision ENT ENT ED: Denies rhinorrhea or sore throat Cardiovascular Cardiovascular: Denies chest pain or palpitations Respiratory/Chest Respiratory/Chest: Denies cough or dyspnea Gastrointestinal Gastrointestinal: Reports nausea; Denies vomiting Genitourinary Genitourinary ED: Denies dysuria or hematuria Musculoskeletal Musculoskeletal: Reports back pain; Denies neck pain Integumentary Denies abscess or rash Neurologic Neurologic: Denies headache(s) or weakness Allergic/Immunologic Allergic/Immunologic ED: Denies mouth swelling or urticaria EXAM Physical Exam Const Vital Signs: 04/21/24 12:09 Temperature 98.2 F Temperature Source Temporal Pulse Rate 86 Respiratory Rate 16 Blood Pressure 113/75 Blood Pressure Mean 87 Pulse Ox 98 Oxygen Delivery Method Room Air Positive well nourished and well developed General Appearance ED: well developed and NAD HEENT Reports moist mucous membranes Neck full ROM and supple Extremity Extremity Narrative: There is mild tenderness over the left calf. There is minimal edema. There is no ecchymosis. There is good range of motion of the left knee and left ankle. There is some mild pain with dorsiflexion of the left ankle. Pedal pulses are equal bilateral. Capillary refill was less than 2 seconds in all digits. Sensation was intact to light touch in all digits. Neuro oriented x3, CN's II-XII intact bilaterally, moves all extremities and no sensory deficits noted Sensorium / Orientation: alert Motor Exam: strength 5/5 throughout Psych mental status grossly normal MDM MDM MDM Narrative Medical decision making narrative: Differential diagnosis includes DVT and muscle strain. Venous duplex of the left lower extremity will be obtained to assess for DVT. Radiography Diagnostic Testing: Venous duplex of the left lower extremity was obtained. There is no evidence of DVT. Treatment and Re-Evaluation Narrative: Patient was advised of her findings. Patient was advised that this most likely a muscle strain. Patient was instructed to ice and elevate the left leg. Patient was instructed to take Tylenol or ibuprofen as needed for pain. Patient was instructed to follow-up with her primary care physician in 5 to 7 days. Patient understood and was agreeable with the plan. All questions were answered. Discharge Plan Triage Chief Complaint: Lower Extremity Injury ED Provider: Holden Rodriguez Dx/Rx/DC Orders Clinical Impression: Strain of left calf muscle, Family history of blood clots Instructions: ED Muscle Strain, Extremity Prescriptions: No Action fluoxetine 10 mg capsule 10 mg PO DAILY lansoprazole 15 mg capsule,delayed release(DR/EC) 30 mg PO DAILY Linzess 72 mcg capsule 72 mcg PO DAILY Qty: 30 2RF Rx Instructions: take 30 minutes prior to first intake of the day. metronidazole 500 mg tablet 500 mg PO BID Qty: 60 0RF etonogestrel-ethinyl estradiol [NuvaRing] 0.12-0.015 mg/24 hr ring 1 vag ring VAGINAL Q4W Qty: 3 3RF Rx Instructions: In vagina X 4 weeks then replace for continuous cycling Primary Care Provider: Emily Santiago Referrals: Emily Santiago MD [Primary Care Provider] - 5-7 Days Print Language: Vietnamese Disposition Disposition: Home, Self Care
== END 2024-04-21 13:02 | disposition home or self-care (01) ==
PROVIDERS: Emergency Provider Emergency Medicine; PCP Internal Medicine; Visit Provider Emergency Medicine
DX: M79.662 Pain in left lower leg (principal); S86.112A Strain of other muscle(s) and tendon(s) of posterior muscle group at lower leg level, left leg, initial encounter; F41.9 Anxiety disorder, unspecified; K21.9 Gastro-esophageal reflux disease without esophagitis; Z79.899 Other long term (current) drug therapy; Z83.2 Family history of diseases of the blood and blood-forming organs and certain disorders involving the immune mechanism
CPT/HCPCS: 93971; 99282

== ENCOUNTER → 2024-08-04 | Outpatient (CLI) | payer OTHER, SELFPAY ==
[2024-08-04 10:04] LABS: Urine Sodium 106 mmol/L (Not Establ.)
== END | disposition home or self-care (01) ==
LOC: LAB 09:20
PROVIDERS: PCP Internal Medicine; Referring Provider Internal Medicine Gastroenterology; Visit Provider Internal Medicine Gastroenterology
DX: R10.84 Generalized abdominal pain (principal)
CPT/HCPCS: 84300

== ENCOUNTER → 2024-08-08 | Outpatient (CLI) | payer OTHER, SELFPAY ==
[2024-08-08 09:59] LABS: Erythrocyte Sedimentation Rate 4 mm/hr (0-30)
[2024-08-08 10:16] LABS: CRP 4.47 mg/L (0.0-3.0)
[2024-08-16 17:06] LABS: ALDOSTERONE/RENIN RATIO 4.5 (0.0-30.0); Adrenocorticotropic Hormone 6.5 pg/mL (7.2-63.3); Aldosterone, Serum 17.4 ng/dL (0.0-30.0); Dopamine, 24Ur 237 ug/24 hr (0-510); Dopamine, Pl <30 pg/mL (0-48); Dopamine, UR 206 ug/L (Undefined); Epinephrine, 24Ur < 3 ug/24 hr (0-20); Epinephrine, Pl 36 pg/mL (0-62); Epinephrine, Ur < 3 ug/L (Undefined); Norepinephrine, 24Ur 20 ug/24 hr (0-135); Norepinephrine, Pl 219 pg/mL (0-874); Norepinephrine, Ur 17 ug/L (Undefined); Renin, Plasma 3.893 ng/mL/hr (0.167-5.380); VMA, 24UR 1.5 mg/24 hr (0.0-7.5); VMA, UR 1.3 mg/L (Undefined)
== END | disposition home or self-care (01) ==
LOC: LAB 08:46
PROVIDERS: PCP Internal Medicine; Referring Provider Internal Medicine Gastroenterology; Visit Provider Internal Medicine Gastroenterology
DX: R10.84 Generalized abdominal pain (principal)
CPT/HCPCS: 36415; 81050; 82024; 82088; 82384; 82533; 84244; 84585; 85652; 86140

== ENCOUNTER → 2024-09-08 | Outpatient (CLI) | payer OTHER, SELFPAY ==
[2024-09-08 17:06] LABS: Absolute Lymphocyte Count 2.39 X10^3/uL (0.83-4.51); Basophil# 0.06 X10^3/uL; Eosinophils% 1.6 % (0-5); Hematocrit 41.3 % (37-47); Hemoglobin 13.8 g/dL (12.0-15.0); Lymphocyte # 2.39 X10^3/ul (0.83-4.51); Lymphocyte % 39.3 % (19-41); Mean Corp Hgb Conc 33.4 g/dL (32-36); Mean Corpuscular Hgb 30.1 pg (27.0-32.0); Mean Platelet Vol. 9.6 fl (6.2-12.0); Monocyte# 0.55 X10^3/uL; NRBC Flagged by Analyzer 0 % (0-5); Neutrophil # 2.97 X10^3/uL (2.7-7.7); Neutrophil % 48.9 % (47-70); Platelet Count 255 K/mm3 (150-450); RBC Distribution Width CV 11.4 % (11.6-14.6); RBC Distribution Width SD 36.7 fl (35.1-43.9); Red Blood Count 4.59 M/mm3 (4.2-5.4); White Blood Count 6.1 K/mm3 (4.4-11.0)
[2024-09-08 17:08] LABS: Internal QC Validated? YES +Cl - CLEAR BKGD; Pregnancy, Serum, hCG Quali. NEGATIVE Negative
[2024-09-08 17:12] LABS: Anion Gap 4 (5-15); BUN 9 mg/dL (7-18); BUN/Creat Ratio 12.8 RATIO (10-20); Calcium,Total 9.3 mg/dL (8.5-10.1); Chloride 110 mmol/L (98-107); EST Glomerular Filtration Rate 108 mL/min (>60); Est Glom Filt Rate - Afr Amer 130 mL/min (>60); Glucose 104 mg/dL (74-106); Potassium 3.8 mmol/L (3.5-5.1); Sodium Level 141 mmol/L (136-145)
== END | disposition home or self-care (01) ==
LOC: LAB 16:36
PROVIDERS: PCP Internal Medicine; Referring Provider Internal Medicine Gastroenterology; Visit Provider Internal Medicine Gastroenterology
DX: R11.0 Nausea (principal)
CPT/HCPCS: 36415; 80048; 84703; 85025

== ENCOUNTER → 2024-09-10 | Outpatient (CLI) | payer OTHER, SELFPAY ==
--- NOTE | 2024-09-11 16:00 | PCM.TILTTABL ---
Staff Staff: Courtney Major and Khloe Worthington Summary Pre Test Resting HR: 100 Pre Test Resting BP: 116/90 Minimum Test HR: 76 Maximum Test HR: 130 Minimum Test BP: 0/0 Maximum Test BP: 125/86 Reason for Test Termination: Near syncope Physician Tilt Table Report Patient's Physicians Primary Care Physician: Emily Santiago Indications/Diagnosis: POTS Procedure Comments: The patient was brought into the noninvasive lab in the postabsorptive nonsedated state. Informed consent was obtained. The initial heart rate EKG and blood pressure were obtained and then the patient was put in the 70 degree head upright tilt position. There was an increase in the heart rate to approximately 133 bpm in sinus rhythm associated with symptomatology and a subsequent drop in the blood pressure to 97/78 mmHg. Subsequently the patient dropped her blood pressure further and were unable to record the blood pressure. Patient was noted to be pale. Patient was then put back in the recumbent position with increase in the heart rate 130 bpm and then improvement in the blood pressure and subsequent decrease in the heart rate. Patient recovered complete symptomatology. Summary: The above is suggestive of postural orthostatic hypotension syndrome with a hypovolemic subtype.
[2024-09-11 16:12] VITALS: BP 0/0; BP 116/90; BP 125/86
== END | disposition home or self-care (01) ==
PROVIDERS: PCP Internal Medicine; Referring Provider Internal Medicine Gastroenterology; Visit Provider Internal Medicine Gastroenterology
DX: R11.0 Nausea (principal); G90.A Postural orthostatic tachycardia syndrome [POTS]
CPT/HCPCS: 93660; A4216

== ENCOUNTER → 2024-09-14 | Outpatient (CLI) | payer OTHER, SELFPAY ==
[2024-09-14 11:47] LABS: 24Hr.Lytes Total Volume 1300 mL; Sodium 24 HR UR 133 mmol/24h (40-220); Urine Sodium 102 mmol/L (Not Establ.)
== END | disposition home or self-care (01) ==
PROVIDERS: PCP Internal Medicine; Referring Provider Internal Medicine Gastroenterology; Visit Provider Internal Medicine Gastroenterology
DX: R10.84 Generalized abdominal pain (principal)
CPT/HCPCS: 81050; 84300

== ENCOUNTER 2024-09-17 17:39 | Emergency (ER) | payer OTHER, SELFPAY ==
[2024-09-17 17:39] VITALS: BP 133/100; PULSE 84; RESP 18; TEMP 36.2; O2SAT 100; BMI 18.8
--- NOTE | 2024-09-17 18:02 | CT_ITS ---
STUDY: CT BRAIN WITHOUT CONTRAST REASON FOR EXAM: Female, 24 years old. [facility] RADIATION DOSAGE (If Supplied By Facility): CTDIvol = ( 44.99 ) mGy, DLP = ( 745.49 ) mGycm TECHNIQUE: Transaxial CT imaging of the brain was performed without administration of intravenous contrast material. Individualized dose optimization techniques were used for this CT. COMPARISON: No relevant priors. FINDINGS: Normal soft tissue structures. Normal calvarium. Normal size ventricles and extra-axial spaces for the patient''s age. Normal white matter tracts of the cerebral hemispheres. Normal basal ganglia and thalami. Normal brainstem. Normal cerebellum. There is no intracranial hemorrhage. There are no findings of an acute ischemic infarction. Normal visualized paranasal sinuses. CT/Brain/Head without Contrast IMPRESSION: Normal unenhanced CT scan of the brain. Electronically Signed: Ivan Mello MD at 19:08 EST ,
--- NOTE | 2024-09-17 18:07 | EDS_ITS ---
HPI History of Present Illness Chief Complaint: Headache Narrative Narrative: Chief complaint and HPI: Headache and blurry vision in the left eye. 24-year-old female with history of anxiety presents for evaluation of headache and blurry vision in the left eye. Patient states that she follows with Dr. Harris for chronic GI upset. She states that she has chronic intermittent dizziness and nausea. She states that Dr. Harris wrote for an outpatient tilt test which was positive. She has not followed up for this yet. Patient states last Saturday she developed a headache. She states the headache was gradual and that she did not wake up with it. She states the headache is mild. No history of migraines. Denies any aura. Patient states over the weekend she started to notice intermittent blurry vision of the left eye. She states that occasionally it tears. She denies any pain in the left eye. She denies any photophobia or phonophobia. Patient states that she called her PCPs office who told her to be seen in the emergency department. She does have an appointment with the eye doctor. She denies any fever, chills, URI symptoms, tinnitus, neck pain, shortness of breath, chest pain abdominal pain, nausea, vomiting, numbness or tingling, focal deficit, weakness. Patient does endorse that her anxiety has been increased due to her symptoms. Review of systems: See HPI Medications: As listed on the chart Allergies: As listed on the chart PFSH: Per chart Vital signs: As listed on the chart. Reviewed. Physical exam: Gen: A&O x3, NAD but anxious Head: Normocephalic, atraumatic Eyes: No scleral icterus, conjunctival clear, EOMI without pain, PERRLA, optic discs were visualized and normal, no visual field deficit, no foreign body, no proptosis ENT: Moist mucous membranes, No facial asymmetry, no sinus tenderness, no tenderness of the temporal artery Neck: Trachea midline, No JVD, full range of motion, no meningismus CV: RRR, no murmurs, no peripheral edema Resp: Lungs CTA BL, no w/r/c GI: Abd soft, non-distended, non-tender, no r/r/g Musc: Full ROM, no deformity, strength +5/5 in all extremities Skin: Warm, dry, intact Neuro: Alert, oriented, grossly intact, sensation intact, no focal deficits Psych: Cooperative, appropriate mood and affect PFSH PFSH Medical History (Updated 09/17/24 @ 19:[address] Micah Mckeon, DO) POTS (postural orthostatic tachycardia syndrome) Contraceptive management Wears contact lenses Gastric reflux Non-smoker RLQ abdominal pain GERD (gastroesophageal reflux disease) Anxiety Home Medications ?Medication ?Instructions ?Recorded ?Last Taken ?Type fluoxetine 10 mg capsule 10 mg PO DAILY 06/19/22 Unknown History etonogestrel 0.12 mg-ethinyl 1 vag ring vaginal Q4W #1 ea 07/10/24 Unknown Rx estradiol 0.015 mg/24 hr vaginal ring (EluRyng) Allergy/AdvReac Type Severity Reaction Status Date / Time No Known Allergies Allergy Verified 09/17/24 17:39 Family History Aunt Breast cancer Mother History of DVT (deep vein thrombosis) Other Crohn's disease Surgical History [place] teeth extracted Social History (Updated 07/06/24 @ 08:22 by Susana Bynum) household members: family number of children: 0 current occupational status: employed current occupation: [employer] current occupational exposures/hazards: No pets and animals: No history of recent travel: No sexually active: Yes Smoking Status: Never smoker alcohol intake: current alcohol intake frequency: a few times a month substance use type: does not use what type of physical activity do you participate in: running frequency: 3-4 times per week seatbelt use: always do you feel safe at home: Yes additional social history: - [employer] ([employer]) EXAM Physical Exam Const Vital Signs: 09/17/24 17:39 09/17/24 20:11 Temperature 97.2 F L 97.6 F L Temperature Source Temporal Pulse Rate 84 71 Respiratory Rate 18 14 Blood Pressure 133/100 H 124/88 H Blood Pressure Mean 111 100 Pulse Ox 100 99 MDM MDM MDM Narrative Medical decision making narrative: 24-year-old female with history of anxiety presents for evaluation of headache and blurry vision in the left eye. Denies acute onset of headache reaching maximal intensity in under one hour. This is neither the worst headache that they have ever experienced, nor was the onset timed with exertional activity or trauma. Patient has not experienced any fever, unusual neck pain or stiffness, syncope, or near syncope. They deny numbness, tingling, or weakness of the extremities. Blurry vision began after the headache. Admits to periodic clear tearing of the left eye. Differential diagnosis includes but is not limited to atypical migraine, cluster/ocular migraine. Physical exam unremarkable will check visual acuity. Given patient's complaints will give CT head to rule out intracranial abnormality, low suspicion. Morphine, NS bolus, Reglan, Benadryl ordered for symptoms. Will place on 10 L nonrebreather for 20 minutes for [address] migraine. CT head without any acute abnormality. Visual acuity was 20/20 in the left eye. 20/15 in the right eye. On reevaluation, patient's headache has improved. Patient stable to discharge home. Follow-up with [facility] physician as well as eye doctor. She confirmed understanding the plan. Return precautions explained. Impression: 1. Headache 2. Blurry vision in the left eye Radiography Diagnostic Testing: Clinical Impression(s) from Imaging Studies Brain CT 09/17/24 18:02 IMPRESSION: Normal unenhanced CT scan of the brain. Electronically Signed: Ivan Mello MD at 19:08 EST Reading Location ID and State: [facility] / [place] Tel , Service support , Discharge Plan Triage Chief Complaint: Headache ED Provider: Micah Mckeon Dx/Rx/DC Orders Clinical Impression: Headache, Blurred vision, left eye Instructions: Understanding Vision Problems, Understanding Headache Pain Prescriptions: No Action fluoxetine 10 mg capsule 10 mg PO DAILY etonogestrel-ethinyl estradiol [EluRyng] 0.12-0.015 mg/24 hr ring 1 vag ring vaginal Q4W Qty: 1 12RF Primary Care Provider: Emily Santiago Referrals: Emily Santiago MD [Primary Care Provider] - 3-5 Days Activity Restrictions/Additional Instructions: Follow-up with your primary care physician. Tylenol Motrin as needed for headache. Keep your appointment with your eye doctor. Return back to the ED if symptoms change or worsen. Print Language: Salvadorean Disposition Disposition: Home, Self Care Discharge Date/Time: 09/17/24 20:12
[2024-09-17] MEDS: Metoclopramide 10 MG/2 ML Vial 5 MG IV (18:13)
[2024-09-17] MEDS: DiphenhydrAMINE 50 MG/ML Syringe 25 MG IV (18:15)
[2024-09-17] MEDS: 0.9% Normal Saline (1000mL) 1,000 ML 1000 ML IV (18:16)
[2024-09-17 20:11] VITALS: BP 124/88; PULSE 71; RESP 14; TEMP 36.4; O2SAT 99
== END 2024-09-17 20:12 | disposition home or self-care (01) ==
PROVIDERS: Emergency Provider Surgery; PCP Internal Medicine; Visit Provider Surgery
DX: R51.9 Headache, unspecified (principal); R42 Dizziness and giddiness; R11.0 Nausea; H53.8 Other visual disturbances; K21.9 Gastro-esophageal reflux disease without esophagitis; F41.9 Anxiety disorder, unspecified; Z79.899 Other long term (current) drug therapy
CPT/HCPCS: 70450; 96361; 96374; 96375; 99284; A4216